=== PATIENT | female | born 1980 | race African-American/Black ===

== ENCOUNTER 2018-06-20 11:58 | Day surgery (SDC) | payer OTHER ==
[~2018-06-20] VITALS: Ht 162.6 cm; Wt 62.5 kg
[2018-06-20] VITALS (16 sets, daily range): BP systolic 93–124; BP diastolic 64–82; PULSE 78–96; RESP 13–32; Ht 162.6 cm; Wt 62.5 kg
[2018-06-20] MEDS ORDERED: QUET400T11 PO (13:05)
[2018-06-20] MEDS ORDERED: TRA100 PO (13:12)
[2018-06-20] MEDS ORDERED: RISP2TAB3 PO (13:12)
[2018-06-20] MEDS ORDERED: LORA1TAB PO (13:13)
[2018-06-20] MEDS ORDERED: BENZ1TAB7 PO (13:13)
[2018-06-20] MEDS ORDERED: ERGO2000 PO (13:14)
[2018-06-20] MEDS ORDERED: MULTI PO (13:15)
[2018-06-20] MEDS ORDERED: SOD CHLORIDE 0.9% 1,000 ML IV ONE (13:30)
[2018-06-20] MEDS ORDERED: CEFAZOLIN 2 GM/50 ML (PMX) 50 ML IVPB ONE (13:30)
[2018-06-20] MEDS ORDERED: BUPIVACAINE 0.25%/EPI (SDV) 30 ML INJ ONE (15:44)
--- NOTE | 2018-06-20 15:45 | PREAC ---
Date/Time of Note Date/Time of Note DATE: 06/20/18 TIME: 15:43 Anesthesia Eval and Record Evaluation Time Pre-Procedure Interview DATE: 06/20/18 TIME: 15:43 Age 38 Sex female NPO: 8 hrs Preoperative diagnosis cholelithiasis, umbilical hernia Planned procedure laparoscopic cholecystectomy, umbilical hernia Past Medical History Past Medical History: Includes Psych: Other (schizophrenia, develop delay) Surgery & Anesthesia Issues No known issue Meds Anticoagulation: No Beta Bibi within 24 hr: No Reason Beta Bibi not given: Pt. not on B-Bibi Reported Medications Multivitamins* (Theragran*) 1 Tab Tab, 1 TAB PO DAILY, TAB 06/20/18 Ergocalciferol (Vitamin D2) (VITAMIN D2) 2,000 Unit Tablet, 2000 UNIT PO DAILY, TAB 06/20/18 Lorazepam* (Lorazepam*) 1 Mg Tablet, 1 MG PO HS PRN for ANXIETY, #30 TAB 06/20/18 Benztropine Mesylate* (Benztropine Mesylate*) 1 Mg Tablet, 1 MG PO BID, TAB 06/20/18 Trazodone Hcl* (Trazodone Hcl*) 100 Mg Tablet, 200 MG PO QHS, #30 TAB 06/20/18 Risperidone* (Risperidone*) 2 Mg Tablet, 2 MG PO BID, TAB 06/20/18 Quetiapine Fumarate* (Quetiapine Fumarate*) 400 Mg Tablet, 400 MG PO HS, TAB 06/20/18 Current Medications Sodium Chloride 1,000 ml @ 75 mls/hr [id number] ONCE IV ; Start 06/20/18 at 13:30; Stop 06/21/18 at 02:49 Meds reviewed: Yes Allergies Coded Allergies: No Known Allergy (Unverified , 06/20/18) Allergies Reviewed: Yes Labs/Studies Labs Reviewed: Reviewed by anesthesiologist Result Diagram: 06/20/18 1224 06/20/18 1224 Laboratory Tests 06/20/18 12:24 test: Negative Pre-procedure Exam Last vitals Vital Signs Date Temp Pulse Resp B/P (MAP) Pulse Ox O2 O2 Flow FiO2 Time Delivery Rate 06/20/18 96.7 96 16 113/73 95 Room Air 13:47 (86) Airway: Adequate mouth opening, Adequate thyromental dist Mallampati: Mallampati I Teeth: Normal Lung: Normal Heart: Normal ASA Physical Status ASA physical status: 2 Emergency: None Planned Anesthetic General/MAC: ETT Planned Pain Management Parenteral pain med Pre-operative Attestations Prior to commencing anesthesia and surgery, the patient was re-evaluated, there was verification of: *The patient's identity *The results of appropriate recent lab work and preoperative vital signs *The above evaluation not changing prior to induction *Anesthetic plan, risk benefits, alternative and complications discussed with patient/family; questions answered; patient/family understands, accepts and wishes to proceed. MARICARMEN DELUNA Jun 20, 2018 15:45
[2018-06-20] MEDS ORDERED: PROPOFOL 100 ML ONE (15:49)
[2018-06-20] MEDS ORDERED: LIDOCAINE 2% (SDV) 5 ML INJ ONE (15:50)
[2018-06-20] MEDS ORDERED: ROCURONIUM 50 MG INJ ONE (15:50)
[2018-06-20] MEDS ORDERED: DEXAMETHASONE 4 MG/ML 5 ML INJ ONE (15:55)
[2018-06-20] MEDS ORDERED: ONDANSETRON 4 MG INJ ONE (15:55)
[2018-06-20] MEDS ORDERED: CEFAZOLIN 1 GM INJ ONE (15:57)
[2018-06-20] MEDS ORDERED: LABETALOL HCL 20MG INJ ONE (16:40)
[2018-06-20] MEDS ORDERED: SUGAMMADEX SODIUM 200 MG/2 ML VIAL IV ONE (17:13)
[2018-06-20] MEDS ORDERED: ONDANSETRON 4 MG INJ IV PRN ×2 (17:30→18:00)
[2018-06-20] MEDS ORDERED: morphine 2 MG INJ IV PRN (17:30)
[2018-06-20] MEDS ORDERED: IBUPROFEN 600 MG TAB PO PRN (17:30)
[2018-06-20] MEDS ORDERED: HYDROCODONE/APAP (5/325) TAB PO PRN ×2 (17:30)
--- NOTE | 2018-06-20 17:30 | OPR ---
Date/Time of Note Date/Time of Note DATE: 06/20/18 TIME: 17:20 Operative Report Procedure Date: Jun 20, 2018 Preoperative Diagnosis 1. Cholelithiasis/chronic cholecystitis 2. Umbilical hernia without obstruction or gangrene Postoperative Diagnosis 1. Cholelithiasis/chronic cholecystitis 2. Umbilical hernia without obstruction or gangrene Operation/Procedure Performed 1. Laparoscopic cholecystectomy 2. Umbilical hernia repair Surgeon see signature line Slot Operations Manager None Anesthesia Type: general Anesthesiologist: MARICARMEN DELUNA Estimated Blood Loss: minimal Transfusion none Specimen Gallbladder Grafts/Implants none Complications none Pt Condition Post Procedure: stable Disposition: PACU Indications The patient is a 38-year-old female with a history of a mild developmental delay and an appendectomy 20 years ago who presented to the office with intermittent epigastric and right upper quadrant abdominal pain for the last 3 to 4 months. The patient had clinical signs and symptoms of chronic cholecystitis and biliary colic which was confirmed via an ultrasound which showed the presence of gallstones. Patient on clinical exam was also found to have a moderate sized umbilical hernia in the area of potential port site placement for cholecystectomy. The patient was scheduled for laparoscopic cholecystectomy; possible open as definitive treatment to prevent further sequelae of gallstone disease which include but are not limited to: Gangrenous cholecystitis, choledocholithiasis, gallstone pancreatitis, ascending cholangitis, etc. simultaneous umbilical hernia repair was also planned to prevent further sequelae of hernia disease which include, but are not limited to: Incarceration and strangulation. All risks and benefits of the procedure including but not limited to: Wound infection, excessive bleeding, common bile duct injury, postoperative biliary leak, retained common bile duct stone, injury to intra- abdominal organs, conversion to open procedure, hernia recurrence, possible need for subsequent surgeries, etc. were all explained to the patient in full detail. We also discussed the cholecystectomy may not completely resolve the patient's pain. She fully understood, was of sound mind, and wished to proceed with the procedure. Informed consent was therefore obtained. Procedure Description Patient was brought to the operating room and placed supine on the operating table. Bilateral sequential compression devices were placed on both lower extremities. A dose of broad-spectrum perioperative intravenous antibiotics was given. Preoperative indocyanine green dye was given in the holding area by the anesthesiologist for identification of the biliary structures intraoperatively. After the induction of smooth general anesthesia the patient's abdomen was prepped and draped in standard surgical fashion. After performance of the surgical timeout an infraumbilical semicircular incision was then made using a 11 blade scalpel. It was carried down through the skin and the dermis. Blunt dissection was then done using Eboni clamps to the level of the anterior rectus fascia. The umbilicus was then encircled using a Eboni clamp. A fat-containing umbilical hernia was identified. The umbilicus was then transected at its base and the sac dissected off of the umbilicus. Hernia contents were reduced back into the intra-abdominal cavity. Stay sutures of 0 Vicryl placed on either side of the fascia. A Espinal trocar was then placed. Pneumoperitoneum was then obtained and a 5 mm laparoscope was placed. Three further working ports were then placed a 12 mm port in the sub-xiphoid region and two 5 mm ports in the right upper quadrant. All port sites were anesthetized with 0.25% Marcaine with epinephrine prior to incision. Using atraumatic graspers the gallbladder was grasped and retracted superiorly and laterally exposing the area of Draper's pouch. Dissection was begun in this area using a combination of blunt dissection and hook electrocautery. The cystic duct was identified as it entered straight into the neck of the gallbladder. Biliary anatomy and the cystic duct were confirmed using the indocyanine green dye and fluorescence imaging. The cystic duct was dissected free of surrounding tissues and clipped proximally and distally x 3 and transected using EndoShears. Dissection was then continued posteriorly. A very short cystic artery was identified coming off the right hepatic artery. There was adhesions and fibrosis in the area. Gentle dissection was done freeing the cystic artery from surrounding tissues. It was then clipped proximally x1 and transected using EndoShears. The gallbladder was then dissected off the liver bed using electrocautery. Once completely free the gallbladder was placed in an Endo Catch bag and withdrawn through the subxiphoid port site and passed off the field as specimen. Hemostasis was then inspected for and noted to be total. The abdomen was then irrigated with warm normal saline and the irrigant returned crystal clear. The fascia of the subxiphoid port site was then reapproximated using an sony-close device. Pneumoperitoneum was then released and all remaining trochars were withdrawn under direct vision. The umbilical hernia was then repaired primarily using 0 Vicryl suture in [id number] fashion. Stay sutures were tied down over the fascial closure. The subcutaneous tissues were irrigated with more warm normal saline and further local anesthesia was applied around the skin of the incision sites. The skin was then reapproximated using 4-0 Monocryl sutures in subcuticular fashion. The incisions were cleaned and Dermabond was applied to the incisions and the patient was awoken from anesthesia and transported to the recovery room in stable condition. All counts were correct at the end of the case x 2. EARLE GRAHAM MD Jun 20, 2018 17:30
--- NOTE | 2018-06-20 17:35 | PAC ---
Date/Time of Note Date/Time of Note DATE: 06/20/18 TIME: 17:35 Post-Anesthesia Notes Post-Anesthesia Note Last documented vital signs Vital Signs Date Temp Pulse Resp B/P (MAP) Pulse Ox O2 O2 Flow FiO2 Time Delivery Rate 06/20/18 96.7 96 16 113/73 95 Room Air 1734 (86) Activity: WNL Respiratory function: WNL Cardiovascular function: WNL Mental status: Baseline Pain reasonably controlled: Yes Hydration appropriate: Yes Nausea/Vomiting absent: Yes MARICARMEN DELUNA Jun 20, 2018 17:35
[2018-06-20] MEDS ORDERED: FENTAnyl 50 MCG/ML VIAL IV PRN ×3 (18:00)
[2018-06-20] MEDS ORDERED: DIPHENHYDRAMINE 50 MG INJ IV PRN (18:00)
[2018-06-20] MEDS ORDERED: KETOROLAC 30 MG INJ IV PRN (18:00)
[2018-06-20] MEDS ORDERED: METOCLOPRAMIDE 10 MG INJ IV PRN (18:00)
[2018-06-20] MEDS ORDERED: HYDROmorphONE 1 MG/5 ML IV SYRINGE IV PRN ×3 (18:00)
[2018-06-20] MEDS ORDERED: OXYCODONE/ACETAMINOPHEN (5/325) TAB PO PRN ×2 (18:00)
[2018-06-20] MEDS ORDERED: LABETALOL HCL 20MG INJ IV PRN (18:00)
[2018-06-20] MEDS ORDERED: MEPERIDINE 25 MG INJ IV PRN (18:00)
[2018-06-20] MEDS ORDERED: hydrALAzine 20 MG INJ IV PRN (18:00)
[2018-06-20] MEDS ORDERED: EPHEDrine SULFATE 50 MG/5 ML SYG IV PRN (18:00)
[2018-06-20] MEDS ORDERED: MIDAZOLAM 1 MG/ML 2 ML INJ IV PRN (18:00)
[2018-06-20] MEDS ORDERED: ALBUTEROL 0.083% (NEB) 2.5 MG/3 ML AMP HHN PRN (18:00)
== END 2018-06-20 20:30 | disposition home or self-care (01) ==
LOC: SDS 11:58
PROVIDERS: ATTEND Surgery
DX: K80.10 Calculus of gallbladder with chronic cholecystitis without obstruction (principal); K42.9 Umbilical hernia without obstruction or gangrene
CPT/HCPCS: 47562; 49585; 80053; 85025; 85610; 85730; J0690; J1100; J1170; J2270; J2405; J3010; 88304